=== PATIENT | female | born 1985 | race African-American/Black ===

== ENCOUNTER 2019-12-08 12:01 | Outpatient (CLI) | payer OTHER, SELFPAY ==
--- NOTE | ~2019-12-08 | XR_ITS ---
EXAMINATION: XR chest 2V EXAM DATE: 12/08/2019 12:50 INDICATION: Back pain. Tobacco use. TECHNIQUE: Frontal and lateral projections of the chest obtained and reviewed. There are no prior st udies for comparison. FINDINGS: The lungs are clear. There are no pleural effusions. The cardiomediastinal silhouette is within normal limits. There is no pneumothorax suspected. There is minimal lower thoracic disc dise ase. No endplate erosive changes. IMPRESSION: Clear lungs. Minimal lower thoracic disc disease. Reviewed, dictated and finalized at location A.
--- NOTE | ~2019-12-08 | XR_ITS ---
EXAMINATION: XR lumbar spine 2-3V EXAM DATE: 12/08/2019 12:51 INDICATION: Back pain. TECHNIQUE: Lumber spine frontal, lateral, lateral L5-S1 projections for interpretation. There is no prior study for comparison. FINDINGS: Minimal thoracolumbar disc disease and arthropathy. Sacrum, sacroiliac joints, sacral arcu ate lines are intact. Paraspinal soft tissue is unremarkable. The vertebral bodies are aligned in the AP dimension. There is no spondylolysis. IMPRESSION: Minimal thoracolumbar spondylosis. Reviewed, dictated and finalized at location A.
[2019-12-08 13:40] LABS: Hemoglobin 11.1 g/dL (12.0-15.0); Mean Corpuscular HGB Conc 31.7 g/dl (32-36); Mean Corpuscular Hemoglobin 22.3 pg (26-34); Mean Corpuscular Volume 70.4 fl (80-100); Mean Platelet Volume 11.1 fl (7.4-10.4); Platelet Count Result 307 k/mm3 (150-375); Red Blood Count 4.97 M/mm3 (4.2-5.4); Red Cell Distribution Width 15.4 % (11.5-14.5); White Blood Count 5.8 K/mm3 (4.5-10.0)
[2019-12-08 13:48] LABS: Hemoglobin A1C 5.2 % (<5.7)
[2019-12-08 13:52] LABS: Alanine Aminotransferase 9 U/L (4-35); Albumin Level 4.2 g/dL (3.5-5.1); Alkaline Phosphatase 78 U/L (38-126); Anion Gap 5 mmol/L (8-16); Aspartate Amino Transferase 17 U/L (14-36); Bilirubin,Total 0.4 mg/dL (0.2-1.3); Blood Urea Nitrogen 6 mg/dL (7-17); Calcium 9.1 mg/dL (8.4-10.2); Carbon Dioxide 26 mmol/L (22-30); Chloride 105 mmol/L (98-107); Cholesterol 160 mg/dL (0-200); Estimated Glomerular Filt Rate > 60; Glucose 90 mg/dL (65-105); HDL Direct 43 mg/dL; Sodium 136 mmol/L (137-145); Triglycerides 64 mg/dL (<150)
[2019-12-08 14:04] LABS: LDL Cholesterol Direct 89 mg/dL
[2019-12-08 14:08] LABS: Creatinine Urine 184.9 mg/dL
[2019-12-08 14:13] LABS: Microalbumin Urine Random 9.3 mg/L (0-16.7)
[2019-12-08 14:21] LABS: Thyroid Stimulating Hormone 0.499 uIU/mL (0.465-4.680)
[2019-12-08 14:24] LABS: Free T4 Free Thyroxine 0.96 ng/mL (0.78-2.19)
== END 2019-12-08 12:02 | disposition home or self-care (01) ==
LOC: ANHIMG 12:10
PROVIDERS: PCP Emergency Medicine; Visit Provider Emergency Medicine
DX: F41.9 Anxiety disorder, unspecified (principal); F32.9 Major depressive disorder, single episode, unspecified; M54.5 Low back pain; M47.815 Spondylosis without myelopathy or radiculopathy, thoracolumbar region
CPT/HCPCS: 36415; 71046; 72100; 80053; 80061; 82043; 83036; 84439; 84443; 85027

== ENCOUNTER 2020-02-03 15:40 | Outpatient (CLI) | payer OTHER, SELFPAY ==
[2020-02-03 16:48] LABS: Iron 71 ug/dL (37-170)
[2020-02-03 16:58] LABS: Percent Iron Saturation 20 % (20-50)
== END 2020-02-03 15:41 | disposition home or self-care (01) ==
LOC: ANHLAB 15:42
PROVIDERS: PCP Emergency Medicine; Visit Provider Emergency Medicine
DX: D64.9 Anemia, unspecified (principal)
CPT/HCPCS: 36415; 83540; 83550

== ENCOUNTER 2020-04-12 22:28 | Emergency (ER) | payer OTHER, MEDICAID, SELFPAY ==
[2020-04-12 22:46] VITALS: BP 132/98; PULSE 85; RESP 18; TEMP 36.4; O2SAT 100
--- NOTE | 2020-04-13 00:15 | ED.GENADULT ---
HPI - General Adult General Chief complaint: Extremity Problem,Nontraumatic Stated complaint: L HIP/THIGH PAIN X4D Time Seen by Provider: 04/12/20 23:57 Source: patient Mode of arrival: ambulatory Limitations: no limitations History of Present Illness HPI narrative: A 34-year-old female presents to the emergency department with complaints of low back pain that radiates down her left leg. Patient states that it goes down through her left buttock and down to her leg. She states that when it really flares up she can feels it all the way down to her toes. She denies any numbness or tingling. She denies any saddle anesthesia, bowel or bladder incontinence. Related Data Allergies Allergy/AdvReac Type Severity Reaction Status Date / Time Penicillins Allergy Itching Verified 04/12/20 22:52 Review of Systems Review of Systems: Narrative: CONSTITUTIONAL: Denies fever, chills, or sweats. EYES: Denies visual changes, redness, or discharge. ENT: Denies rhinorrhea, congestion, sore throat, or otalgia. CARDIOVASCULAR: Denies chest pain, palpitations, or edema. RESPIRATORY: Denies cough or dyspnea. GASTROINTESTINAL: Denies abdominal pain, nausea, vomiting, or diarrhea. GENITOURINARY: Denies dysuria or hematuria. SKIN: Denies rash or itching. MUSCULOSKELETAL: Denies joint pain, or myalgia. Endorses low back pain NEUROLOGIC: Denies headache, numbness, dizziness, or weakness. PSYCHIATRIC: Denies anxiety or depression. [facility] Social History Social History Gender identity (if verbalized by the patient): Female Exam Narrative: Exam Narrative: GENERAL: Well-appearing, well-nourished, and in no acute distress. HEAD: Normocephalic, atraumatic. EYES: PERRLA and EOMI. ENT: Nares clear, no rhinorrhea or epistaxis. Mucous membranes moist. Oropharynx without tonsillar hypertrophy exudate or other lesions. Bilateral TMs pearly dutton nonbulging NECK: Supple. No adenopathy or masses. No carotid bruits or JVD CHEST: Clear to auscultation. No respiratory distress. No wheezes rales or rhonchi HEART: Regular rate and rhythm. No murmur heard. Normal peripheral pulses. ABDOMEN: Soft, nontender, nondistended, normal active bowel sounds. EXTREMITIES: Normal range of motion. No edema. Low back tenderness to palpation particularly on the left SKIN: Warm, dry, no rash. NEURO: No focal deficits. Alert and oriented x3. PSYCH: Normal mood and affect. Course Reevaluation(s) Reevaluation #1: Reevaluated patient and provided care update. She states that her pain has decreased significantly and that she is moving better. We did discuss several stretching exercises to help with her back. Patient encouraged to do these 3-4 times daily. Time: :27 Vital Signs Vital signs: Vital Signs Temperature 36.4 C L 04/12/20 22:46 Pulse Rate 85 04/12/20 22:46 Respiratory Rate 18 04/12/20 22:46 Blood Pressure 132/98 H 04/12/20 22:46 Pulse Oximetry 100 04/12/20 22:46 Temperature 36.4 C L 04/12/20 22:46 Pulse Rate 85 04/12/20 22:46 Respiratory Rate 18 04/12/20 22:46 Blood Pressure 132/98 H 04/12/20 22:46 Pulse Oximetry 100 04/12/20 22:46 Medical Decision Making MDM Narrative Medical decision making narrative: In brief this is a 34-year-old female who came in with complaints of low back pain. Several sources of her pain were considered from a mild L2 compression fractures or even cauda equina. Patient had normal sensation with good movement. I feel her symptoms and presentation are likely consistent with a low back strain and left-sided sciatica. Patient was given symptomatic medications, encouraged on stretching and strengthening exercises and recommended to follow-up with her PCP for potential physical therapy. Vital Signs Vital Signs: Vital Signs Temperature 36.4 C L 04/12/20 22:46 Pulse Rate 85 04/12/20 22:46 Respiratory Rate 18 04/12/20 22:46 Blood Pressure 132/98 H
[2020-04-13] MEDS: methocarbamoL 500 MG TABLET 1000 MG PO (00:46)
[2020-04-13] MEDS: HYDROcodone/acetaminophen (*CRX) 5-325 MG TABLET 1 TAB PO (00:46)
[2020-04-13] MEDS: KETOROLAC 30 MG/ML VIAL (*BKC) IV PUSH (00:46)
[2020-04-13 01:40] VITALS: BP 140/89; PULSE 88; RESP 17; O2SAT 99
== END 2020-04-13 01:40 | disposition home or self-care (01) ==
PROVIDERS: Emergency Provider Emergency Medicine; PCP Emergency Medicine
DX: S39.012A Strain of muscle, fascia and tendon of lower back, initial encounter (principal); M54.42 Lumbago with sciatica, left side; X58.XXXA Exposure to other specified factors, initial encounter
CPT/HCPCS: 96374; 96375; 99284; A9270; J1100; J1885

== ENCOUNTER 2020-06-10 11:11 | Emergency (ER) | payer OTHER, MEDICAID, SELFPAY ==
[2020-06-10 11:13] VITALS: BP 133/103; PULSE 81; RESP 20; TEMP 36.4; O2SAT 100
--- NOTE | 2020-06-10 12:18 | ED.GENADULT ---
HPI - General Adult General Chief complaint: Back Pain/Injury Stated complaint: left side sciatica Time Seen by Provider: 06/10/20 12:01 Source: patient Mode of arrival: ambulatory Limitations: no limitations History of Present Illness HPI narrative: Patient a 34-year-old female who presents with history of sciatica has been going on for 3 years denies any injury or trauma is followed by primary care. Patient has not taken anything for symptoms was recently seen in the emergency department for this. Pain radiates from the left SI region into the thigh. Related Data Allergies Allergy/AdvReac Type Severity Reaction Status Date / Time Penicillins Allergy Itching Verified 06/10/20 11:17 Review of Systems Review of Systems: All systems reviewed & are unremarkable except as noted in HPI and below PMFSH Past Medical History Medical History (Updated 06/10/20 @ 12:24 by Barry Cintron PA-C) Obesity Sciatica Surgical History Surgical History (Updated 06/10/20 @ 12:23 by Barry Cintron PA-C) Hx of breast reduction, elective Social History Social History (Updated 06/10/20 @ 12:23 by Barry Cintron PA-C) Smoking status: Never smoker Gender identity (if verbalized by the patient): Male Exam Narrative: Exam Narrative: GENERAL: Well-appearing, well-nourished, and in no acute distress. HEAD: Normocephalic, atraumatic. EYES: PERRLA and EOMI. ENT: Nares clear, no rhinorrhea or epistaxis. Mucous membranes moist. CHEST: Clear to auscultation. No respiratory distress. No wheezes rales or rhonchi HEART: Regular rate and rhythm. No murmur heard. Normal peripheral pulses. ABDOMEN: Soft, nontender, nondistended EXTREMITIES: Normal range of motion. No edema. Tenderness over the left SI joint no midline tenderness SKIN: Warm, dry, no rash. NEURO: No focal deficits. Alert and oriented x3. Cranial nerves II through XII grossly intact. Normal speech and gait. Motor and sensory intact and symmetrical in PSYCH: Normal mood and affect. Course Course Emergency Course: Patient in the room no distress aware of case findings treatment plan diagnosis Vital Signs Vital signs: Vital Signs Temperature 97.5 F L 06/10/20 11:13 Pulse Rate 81 06/10/20 11:13 Respiratory Rate 20 06/10/20 11:13 Blood Pressure 133/103 H 06/10/20 11:13 Pulse Oximetry 100 06/10/20 11:13 Temperature 97.5 F L 06/10/20 11:13 Pulse Rate 81 06/10/20 11:13 Respiratory Rate 20 06/10/20 11:13 Blood Pressure 133/103 H 06/10/20 11:13 Pulse Oximetry 100 06/10/20 11:13 Medical Decision Making MDM Narrative Medical decision making narrative: Patients pain is positional in nature and localized to back without signs of cord compression or cauda equina based on neurological exam, skeletal exam and history. No fever or other significant factors to suggest osteomyelitis or spinal epidural abscess. No symptoms or signs to suggest pain is referred from abdominal or / cardiopulmonary sources. No pulsatile masses noted on exam. Patient ambulates with steady gait and is stable for outpatient management given case findings. Vital Signs Vital Signs: Vital Signs Temperature 97.5 F L 06/10/20 11:13 Pulse Rate 81 06/10/20 11:13 Respiratory Rate 20 06/10/20 11:13 Blood Pressure 133/103 H 06/10/20 11:13 Pulse Oximetry 100 06/10/20 11:13 Temperature 97.5 F L 06/10/20 11:13 Pulse Rate 81 06/10/20 11:13 Respiratory Rate 20 06/10/20 11:13 Blood Pressure 133/103 H 06/10/20 11:13 Pulse Oximetry 100 06/10/20 11:13 Discharge Plan Discharge Clinical Impression: Lumbar radiculopathy Patient Disposition: Home, Self-Care Condition: Stable Instructions: Antibiotic Form, Lumbar Radiculopathy (ED) Additional Instructions: Medications as needed and prescribed. Limit lifting and bending. You may apply heat or cold to the area as needed. Follow up with your doctor for further care in the 7 da
[2020-06-10] MEDS: diazePAM (*CRX) 5 MG TABLET PO (12:22)
[2020-06-10] MEDS: HYDROcodone/acetaminophen (*CRX) 5-325 MG TABLET 1 TAB PO (12:22)
[2020-06-10] MEDS: KETOROLAC (*BKC) 60 MG/2 ML VIAL IM (12:23)
[2020-06-10 12:43] VITALS: BP 118/72; PULSE 84; RESP 16; O2SAT 100
== END 2020-06-10 12:42 | disposition home or self-care (01) ==
PROVIDERS: Emergency Provider Emergency Medicine; PCP Emergency Medicine
DX: M54.16 Radiculopathy, lumbar region (principal); M54.32 Sciatica, left side; E66.9 Obesity, unspecified; Z68.32 Body mass index [BMI] 32.0-32.9, adult
CPT/HCPCS: 96372; 99283; A9270; J1885

== ENCOUNTER 2020-12-01 04:04 | Emergency (ER) | payer OTHER, MEDICAID, SELFPAY ==
[2020-12-01] VITALS (47 sets, daily range): BP systolic 92–122; BP diastolic 59–85; PULSE 95–136; RESP 16–35; TEMP 37.2; O2SAT 83–100
--- NOTE | ~2020-12-01 | US_ITS ---
EXAMINATION: US venous doppler LE EXAM DATE: 12/01/2020 07:51 INDICATION: pain swelling, COVID positive, eval for dvt Pain, Swelling, COVID+, 33 Weeks . TECHNIQUE: Multiple grayscale, color flow and Doppler images of the lower extremity deep venous syste ms bilaterally were obtained and reviewed. There is no prior study for comparison. FINDINGS: Right side: The right common femoral, femoral and profunda veins demonstrate normal color flow, respi ratory variation, augmentation and compressibility. Compressibility, color flow confirmed within the right popliteal, posterior tibial, peroneal, and greater saphenous veins. Left side: The left common femoral, femoral and profunda veins demonstrate normal color flow, respira tory variation, augmentation and compressibility. Compressibility, color flow confirmed within the l eft popliteal, posterior tibial, peroneal, and greater saphenous veins. IMPRESSION: 1. No lower extremity deep venous thrombosis bilaterally. Reviewed, dictated and finalized at location A.
--- NOTE | ~2020-12-01 | CT_ITS ---
EXAMINATION: CTA chest PE protocol EXAM DATE: 12/01/2020 05:30 INDICATION: shortness of breath, , COVID positive. TECHNIQUE: Spiral CTA of the chest (pulmonary arteries) was performed with 100 cc Omnipaque 350 intr avenous contrast injection. Images were acquired during the pulmonary arterial phase. Coronal maxi mum intensity projection 3D-reconstructions were created by the technologist on dedicated workstation . Axial, coronal and sagittal reformatted images were reviewed. The dose-length product (DLP) for t his examination was 676.74 mGy-cm. The exposure was tailored according to patient size (auto mA exp osure control), and iterative reconstruction (ASIR) was used as additional dose reduction technique. There is no prior study for comparison. FINDINGS: Pulmonary arteries are well opacified and without intraluminal filling defects. No thora cic aortic dissection. Scattered regions of peripheral predominant airspace disease, distribution an d appearance is consistent with COVID pneumonia. There are no pleural or pericardial effusions. Tr acheobronchial tree is patent. Some reactive lymph nodes upper limits of normal in size. There is no pneumothorax. Heart normal in size. No evidence of coronary arterial calcification. Upper abd omen is unremarkable. There is thoracic spondylosis without osteoblastic or osteolytic lesions iden tified. IMPRESSION: 1. Patchy bilateral COVID pneumonia. 2. No pulmonary emboli. Reviewed, dictated and finalized at location A.
--- NOTE | 2020-12-01 04:22 | ECG_ITS ---
Measurements Intervals [place] Rate: 114 P: 48 AL: 151 QRS: 34 QRSD: 81 T: -6 QT: 274 QTc: 378 Interpretive Statements SINUS TACHYCARDIA POSSIBLE LEFT ATRIAL ENLARGEMENT BORDERLINE T WAVE ABNORMALITY- ANTEROLAT/INF LEADS BASELINE WANDER- I, II, III, V1-V6 ABNORMAL ECG Electronically Signed On 12-01-2020 6:53:46 CDT by Roe Valadez D.O.
--- NOTE | 2020-12-01 04:35 | ED.GENADULT ---
HPI - General Adult General Chief complaint: Shortness of Breath/Dyspnea <Po Farias MD - Last Filed: 12/01/20 04:38> Stated complaint: 8 months preg, covid+, leg pain, sob on exertion <Po Farias MD - Last Filed: 12/01/20 04:38> Time Seen by Provider: 12/01/20 04:13 <Po Farias MD - Last Filed: 12/01/20 04:38> History of Present Illness HPI narrative: Patient 35-year-old presents the emergency department with chief complaint of shortness of breath and leg cramping. Patient reports that she is 33 weeks and is followed by OB over at [facility] patient states this evening she started getting more short of breath and noticed that her legs were cramping. Patient reports that she was diagnosed with COVID-19 on and has been self quarantining at home. Patient states that she feels as though she cannot get a good deep breath reports that her symptoms are worsened with exertion and improved with rest. The patient denies hypoxia <Po Farias MD - Last Filed: 12/01/20 04:38> Related Data Allergies/adverse reactions: Allergies Allergy/AdvReac Type Severity Reaction Status Date / Time Penicillins Allergy Itching Verified 06/10/20 11:17 <Po Farias MD - Last Filed: 12/01/20 04:38> Review of Systems Review of Systems: A 10 system review of systems was completed on the patient and is negative except for what is stated in the HPI. Nursing and ancillary documentation was reviewed. <Po Farias MD - Last Filed: 12/01/20 04:38> PMFSH Past Medical History Medical History: Medical History Obesity Sciatica <Po Farias MD - Last Filed: 12/01/20 04:38> Surgical History Surgical History: Surgical History Hx of breast reduction, elective <Po Farias MD - Last Filed: 12/01/20 04:38> Social History Social History: Social History Smoking status: Never smoker Gender identity (if verbalized by the patient): Male <Po Farias MD - Last Filed: 12/01/20 04:38> Exam Narrative: GENERAL: Well-appearing, well-nourished, and in no acute distress. HEAD: Normocephalic, atraumatic. EYES: PERRLA and EOMI. ENT: Nares clear, no rhinorrhea or epistaxis. Mucous membranes moist. NECK: Supple. CHEST: Clear to auscultation. No respiratory distress. HEART: Regular rate and rhythm. No murmur heard. Normal peripheral pulses. ABDOMEN: Soft, nontender, gravid, normal active bowel sounds. EXTREMITIES: Normal range of motion. No edema. SKIN: Warm, dry, no rash. NEURO: No focal deficits. Alert and oriented x3. PSYCH: Normal mood and affect. <Po Farias MD - Last Filed: 12/01/20 04:38> Course Reevaluation(s) Reevaluation #1: Patient laying down comfortably in bed, feeling achy all over, denying any chest pain or shortness of breath. <Aide Oswald MD - Last Filed: 12/01/20 12:57> Date: 12/01/20 <Aide Oswald MD - Last Filed: 12/01/20 12:57> Time: 12:57 <Aide Oswald MD - Last Filed: 12/01/20 12:57> Vital Signs Vital signs: Vital Signs Temperature 37.2 C 12/01/20 04:10 Pulse Rate 115 H 12/01/20 04:10 Respiratory Rate 28 H 12/01/20 04:10 Blood Pressure 116/71 12/01/20 04:10 Pulse Oximetry 100 12/01/20 04:10 Temperature 37.2 C 12/01/20 04:10 Pulse Rate 117 H 12/01/20 12:06 Respiratory Rate 26 H 12/01/20 12:06 Blood Pressure 122/72 12/01/20 12:06 Pulse Oximetry 99 12/01/20 12:06 <Po Farias MD - Last Filed: 12/01/20 04:38> Vital Signs Temperature 37.2 C 12/01/20 04:10 Pulse Rate 115 H 12/01/20 04:10 Respiratory Rate 28 H 12/01/20 04:10 Blood Pressure 116/71 12/01
[2020-12-01 04:44] LABS: Basophils Percent Auto 0.2 % (0.2-1.2); Hematocrit 31.9 % (37.0-47.0); Immature Granulocyte Absolute 0.02 K/mm3 (0.00-0.031); Immature Granulocyte Percent A 0.4 % (0-0.5); Lymphocytes Absolute Auto 1.21 K/mm3 (0.9-3.2); Lymphocytes Percent Auto 23.1 % (18.3-44.2); Mean Corpuscular HGB Conc 31.3 g/dl (32-36); Mean Corpuscular Volume 66.9 fl (80-100); Mean Platelet Volume 10.3 fl (7.4-10.4); Monocytes Absolute Auto 0.3 K/mm3 (0.1-0.6); Monocytes Percent Auto 5.4 % (2.6-8.5); Neutrophils Absolute Auto 3.7 K/mm3 (1.3-6.7); Neutrophils Percent Auto 70.9 % (45.5-73.1); Platelet Count Result 205 k/mm3 (150-375); Red Blood Count 4.77 M/mm3 (4.2-5.4); Red Cell Distribution Width 17.2 % (11.5-14.5); White Blood Count 5.2 K/mm3 (4.5-10.0)
[2020-12-01 04:54] LABS: INR 0.9; Lactic Acid Reflex 0.9 mmol/L (0.7-2.1); Prothrombin Time 11.7 Seconds (11.1-14.7)
[2020-12-01 04:55] LABS: Partial Thromboplastin Time 37.9 SECONDS (22.3-36.8)
[2020-12-01 04:56] LABS: Alanine Aminotransferase 35 U/L (4-35); Albumin Level 3.1 g/dL (3.5-5.1); Alkaline Phosphatase 172 U/L (38-126); Anion Gap 9 mmol/L (8-16); Aspartate Amino Transferase 44 U/L (14-36); Bilirubin,Total 0.4 mg/dL (0.2-1.3); Calcium 8.5 mg/dL (8.4-10.2); Carbon Dioxide 19 mmol/L (22-30); Chloride 104 mmol/L (98-107); Estimated CRCL calculation 190 ml/min; Estimated Glomerular Filt Rate > 60; Glucose 139 mg/dL (65-110); Potassium 3.1 mmol/L (3.4-5.0); Sodium 132 mmol/L (137-145)
--- NOTE | 2020-12-01 05:14 | PC.NURSE ---
Pt to CT from restroom via wheelchair at this time.
[2020-12-01 05:15] LABS: NT Pro B Type Natriuretic Pept 17 pg/mL (5-100); Troponin I < 0.012 ng/mL (0.000-0.034)
[2020-12-01 05:37] LABS: Blood Urea Nitrogen < 2 mg/dL (7-17)
[2020-12-01 06:03] LABS: Add Urine Microscopic? YES; Appearance Urine Cloudy (Clear); Bacteria Urine 1+ /hpf; Bilirubin Urine Negative (Negative); Blood Urine Negative (Negative); Color Urine Yellow (Yellow); Glucose Urine UA Negative (Negative); Ketones Urine 1+ mg/dL (Negative); Leukocyte Esterase Ur Negative LEU/UL (Negative); Mucus Urine Rare /lpf; Nitrate Urine Negative (Negative); Protein Urine Negative (Negative); Squamous Epithelial Cell Urine Many /hpf (Few); Urobilinogen Urine Negative mg/dL (<2.0)
--- NOTE | 2020-12-01 06:04 | PC.NURSE ---
Called ED respiratory to follow-up on albuterol treatment for pt. Was told they were dealing with a pt on floor and would be down to ED as soon as possible.
--- NOTE | 2020-12-01 06:05 | PC.NURSE ---
Pt requesting pain medication for pain in lower legs. EDP notified.
[2020-12-01] MEDS: ALBUTEROL SULFATE (*SP) INHALER 2 PUFF INHALATION (06:13)
[2020-12-01] MEDS: MORPHINE SULFATE (*CRX) 4 MG/ML INJ IV PUSH (06:17)
[2020-12-01 07:57] LABS: Troponin I < 0.012 ng/mL (0.000-0.034)
[2020-12-01 10:36] LABS: Troponin I < 0.012 ng/mL (0.000-0.034)
== END 2020-12-01 13:32 | disposition home or self-care (01) ==
PROVIDERS: Emergency Medicine; Emergency Provider Emergency Medicine; PCP Emergency Medicine
DX: O98.513 Other viral diseases complicating pregnancy, third trimester (principal); U07.1 COVID-19; O99.513 Diseases of the respiratory system complicating pregnancy, third trimester; J12.82 Pneumonia due to coronavirus disease 2019; O99.891 Other specified diseases and conditions complicating pregnancy; R00.0 Tachycardia, unspecified; R94.31 Abnormal electrocardiogram [ECG] [EKG]; Z3A.33 33 weeks gestation of pregnancy
CPT/HCPCS: 36415; 71275; 80053; 81001; 83605; 83880; 84484; 85025; 85610; 85730; 87086; 87088; 93005; 93970; 96374; 99284; A9270; J2270; Q9967

== ENCOUNTER 2021-01-29 11:17 | Outpatient (CLI) | payer OTHER, MEDICAID, SELFPAY ==
--- NOTE | ~2021-01-29 | XR_ITS ---
XR chest 2V 01/29/2021 11:36 Indication: Wheezing Procedure: 2 view chest Comparison: 12/08/2019 Findings: There are lingular and right middle lobe infiltrates. Heart size normal. No pleural effusio n or pneumothorax. No edema. Impression: 1: Lingular and right middle lobe infiltrates which may represent atelectasis or developing pneumonia . Reviewed, dictated and finalized at location A. OIDERY MACHINE OPERATOR Impression: 1: Lingular and right middle lobe infiltrates which may represent atelectasis o r developing pneumonia.
== END 2021-01-29 11:18 | disposition home or self-care (01) ==
LOC: ANHIMG 11:24
PROVIDERS: PCP Emergency Medicine; Visit Provider Emergency Medicine
DX: R06.2 Wheezing (principal)
CPT/HCPCS: 71046

== ENCOUNTER 2021-11-29 16:22 | Outpatient (CLI) | payer OTHER, MEDICAID, SELFPAY ==
--- NOTE | ~2021-11-29 | CT_ITS ---
EXAMINATION: CT brain wo con INDICATION: Headache COMPARISON: None TECHNIQUE: Standard unenhanced head CT. The dose-length product (DLP) was 605.33 mGy-cm. The mA was a djusted according to patient size. Iterative reconstruction technique was employed. FINDINGS: There is no intracranial hemorrhage, acute infarction, or abnormal mass lesion. The ventric les are normal. There is no abnormal mass effect or midline shift. The dutton-white matter differentiat ion is normal. The basal cisterns are patent. The orbits are normal. The paranasal sinuses, mastoids and calvarium are normal. IMPRESSION: 1. No acute intracranial abnormality. Reviewed, dictated and finalized at location B.
== END 2021-11-29 16:23 | disposition home or self-care (01) ==
PROVIDERS: PCP Emergency Medicine; Visit Provider Emergency Medicine
DX: R51.9 Headache, unspecified (principal)
CPT/HCPCS: 70450